=== PATIENT | female | born 1955 | race Caucasian/White ===

== ENCOUNTER 2016-11-15 19:26 | Emergency (ER) | payer OTHER, BC ==
[~2016-11-15] VITALS: Ht 165.1 cm; Wt 95.4 kg
[~2016-11-15 19:26] MED LIST: C COMPLEX500 MG PO; CORTISONE57 GM TP; PERCOCET 5/31 TABLET PO; PRED FORTE100 DROP/5 BOTH EYES; SENNA8.6 MG PO; ULTRAM50 MG PO; VALACYCLOVIR1000 MG PO; VICKS VAPORUB O50 GM TP; VITAMIN D31000 UNIT PO; VITAMIN E400 UNIT PO
[2016-11-15 23:11] VITALS: BP 126/65
== END 2016-11-15 23:13 | disposition home or self-care (01) ==
LOC: EME → EDBD 19:26 → EME 23:13
PROC: 0HQ0XZZ Repair Scalp Skin, External Approach (ICD-10-PCS; principal; 2016-11-15)
DX: S01.01XA Laceration without foreign body of scalp, initial encounter (principal); S06.0X0A Concussion without loss of consciousness, initial encounter; W01.198A Fall on same level from slipping, tripping and stumbling with subsequent striking against other object, initial encounter; Y93.E2 Activity, laundry; Y92.193 Bedroom in other specified residential institution as the place of occurrence of the external cause
CPT/HCPCS: 70450; 93005; 99281; 99285

== ENCOUNTER 2016-12-17 20:35 | Emergency (ER) | payer OTHER, BC ==
[~2016-12-17] VITALS: Ht 165.1 cm; Wt 95.5 kg
[2016-12-17 21:22] LABS: EOSINOPHIL (%) 1.7 % (0-5); EOSINOPHIL COUNT 0.2 K/uL (0-0.3); IMMATURE GRANULOCYTE (%) 0.5 % (0.0-0.7); INSTRUMENT ABS NEUTROPHIL CT 5.5 K/uL; LYMPHOCYTE COUNT 2.2 K/uL (1.0-2.8); MCH 32.2 PG (29.0-34.0); MCHC 33.2 G/DL (30.0-36.0); MCV 97.2 FL (83-99); MEAN PLAT.VOLUME 9.5 uM^3 (9.5-12.4); MONOCYTE (%) 9.3 % (3-12); MONOCYTE COUNT 0.8 K/uL (0-0.8); NEUTROPHIL (%) 63.2 % (45-76); NEUTROPHIL COUNT 5.5 K/uL (1.8-6.4); PLATELET COUNT 303 K/uL (156-360); RBC DIS.WIDTH-CV 13.1 % (11.8-14.6); RBC DIS.WIDTH-SD 46.6 % (39-53); RED BLOOD COUNT 3.91 M/uL (3.80-5.20); WHITE BLOOD COUNT 8.7 K/uL (4.1-10.2)
[2016-12-17 21:31] LABS: CHLORIDE 98 mEq/L (99-109); MAGNESIUM 1.9 mg/dL (1.3-2.7); POTASSIUM 3.9 mEq/L (3.7-5.4); SODIUM 133 mEq/L (136-147)
[2016-12-17 21:32] LABS: GLUCOSE 99 mg/dL (70-99)
[2016-12-17 21:33] LABS: PROTHROMBIN TIME 10.4 (9.2-11.2); PTT 29.2 (25-32)
[2016-12-17 21:34] LABS: ANION GAP 8 MEQ/L (2-14)
[2016-12-17 21:36] LABS: GFR ESTIMATE (CALCULATED) > 59 mL/min/
[2016-12-17 21:37] LABS: UREA NITROGEN (BUN) 11 mg/dL (9-23)
[2016-12-17 21:44] LABS: TROP-I INTERPRETATION NEGATIVE; TROPONIN-I < 0.01 ng/mL (0.0-0.30)
[2016-12-18 00:37] LABS: TROP-I INTERPRETATION NEGATIVE; TROPONIN-I < 0.01 ng/mL (0.0-0.30)
[2016-12-18 03:36] VITALS: BP 143/73
== END 2016-12-18 03:38 | disposition home or self-care (01) ==
LOC: EME 20:35
PROVIDERS: Emergency Medicine
DX: R07.9 Chest pain, unspecified (principal); Z87.891 Personal history of nicotine dependence; E55.9 Vitamin D deficiency, unspecified; F20.9 Schizophrenia, unspecified
CPT/HCPCS: 71010; 80048; 83735; 84484; 85025; 85610; 85730; 93005; 99281; 99285

== ENCOUNTER 2017-12-23 07:39 | Emergency (ER) | payer OTHER, BC ==
[~2017-12-23] VITALS: Ht 167.6 cm; Wt 90.6 kg
[2017-12-23 08:11] LABS: HEMATOCRIT 42.3 % (36.0-46.0); HEMOGLOBIN 14.3 G/DL (11.9-15.5); MCH 32.6 PG (29.0-34.0); MCHC 33.8 G/DL (30.0-36.0); MCV 96.4 FL (83-99); PLATELET COUNT 287 K/uL (156-360); RBC DIS.WIDTH-SD 42.6 % (39-53); RED BLOOD COUNT 4.39 M/uL (3.80-5.20); WHITE BLOOD COUNT 6.5 K/uL (4.1-10.2)
[2017-12-23 08:19] LABS: D-DIMER ELISA < 150.00 ng/mLDDU (<230)
[2017-12-23 08:22] LABS: CHLORIDE 103 mEq/L (99-109); POTASSIUM 3.8 mEq/L (3.7-5.4); SODIUM 140 mEq/L (136-147)
[2017-12-23 08:23] LABS: GLUCOSE 95 mg/dL (70-99)
[2017-12-23 08:27] LABS: CREATININE 0.8 mg/dL (0.6-1.3); GFR ESTIMATE (CALCULATED) > 59 mL/min/
[2017-12-23 08:28] LABS: UREA NITROGEN (BUN) 8 mg/dL (9-23)
[2017-12-23 08:32] LABS: TROP-I INTERPRETATION NEGATIVE; TROPONIN-I < 0.01 ng/mL (0.0-0.30)
[2017-12-23 10:39] LABS: TROP-I INTERPRETATION NEGATIVE; TROPONIN-I < 0.01 ng/mL (0.0-0.30)
[2017-12-23 11:30] VITALS: BP 132/80
== END 2017-12-23 12:25 | disposition home or self-care (01) ==
LOC: EME → EDBD 07:39 → EME 07:39
PROVIDERS: Nurse Practitioner Family
DX: R07.9 Chest pain, unspecified (principal); Z86.718 Personal history of other venous thrombosis and embolism; Z90.710 Acquired absence of both cervix and uterus; Z87.891 Personal history of nicotine dependence
CPT/HCPCS: 71046; 80048; 84484; 85027; 85379; 93005; 99281; 99284

== ENCOUNTER 2018-01-29 10:11 | Emergency (ER) | payer OTHER, BC ==
[~2018-01-29] VITALS: Ht 167.6 cm; Wt 100.0 kg
[2018-01-29 11:16] LABS: HEMATOCRIT 44.2 % (36.0-46.0); HEMOGLOBIN 14.8 G/DL (11.9-15.5); MCH 31.8 PG (29.0-34.0); MCHC 33.5 G/DL (30.0-36.0); MCV 95.1 FL (83-99); PLATELET COUNT 320 K/uL (156-360); RBC DIS.WIDTH-CV 12.1 % (11.8-14.6); RBC DIS.WIDTH-SD 42.3 % (39-53); RED BLOOD COUNT 4.65 M/uL (3.80-5.20)
[2018-01-29 11:27] LABS: CHLORIDE 100 mEq/L (99-109); POTASSIUM 4.7 mEq/L (3.7-5.4); SODIUM 139 mEq/L (136-147)
[2018-01-29 11:34] LABS: GLUCOSE 100 mg/dL (70-99)
[2018-01-29 11:37] LABS: TROP-I INTERPRETATION NEGATIVE; TROPONIN-I < 0.01 ng/mL (0.0-0.30)
[2018-01-29 11:38] LABS: CREATININE 0.9 mg/dL (0.6-1.3); GFR ESTIMATE (CALCULATED) > 59 mL/min/
[2018-01-29 11:39] LABS: UREA NITROGEN (BUN) 9 mg/dL (9-23)
[2018-01-29 16:29] LABS: APPEARANCE CLEAR ((CLEAR)); BILIRUBIN NEGATIVE; BLOOD NEGATIVE; COLOR STRAW ((YELLOW)); GLUCOSE (STRIP) NEGATIVE; KETONES NEGATIVE; LEUKOCYTES NEGATIVE; NITRITE NEGATIVE; PROTEIN (STRIP) NEGATIVE; SPECIFIC GRAVITY 1.006 (1.000-1.030); UCUL ADDED? NO; UROBILINOGEN 0.2 MG/DL (0.2-1.0)
[2018-01-29] MEDS ORDERED: MECLIZINE HCL25 MG PO (16:37)
[2018-01-29 18:32] VITALS: BP 134/74
== END 2018-01-29 18:33 | disposition home or self-care (01) ==
LOC: EME 10:11
PROVIDERS: Nurse Practitioner Family
PROC: 3E0234Z Introduction of Serum, Toxoid and Vaccine into Muscle, Percutaneous Approach (ICD-10-PCS; principal; 2018-01-29)
PROC: 0HQFXZZ Repair Right Hand Skin, External Approach (ICD-10-PCS; principal; 2018-01-29)
DX: R42 Dizziness and giddiness (principal); S61.210A Laceration without foreign body of right index finger without damage to nail, initial encounter; G93.89 Other specified disorders of brain; W45.8XXA Other foreign body or object entering through skin, initial encounter; W22.8XXA Striking against or struck by other objects, initial encounter; Z23 Encounter for immunization; Z87.891 Personal history of nicotine dependence
CPT/HCPCS: 70450; 80048; 81003; 84484; 85027; 93005; 99281; 99284